=== PATIENT | female | born 1970 ===

== ENCOUNTER → 2019-03-05 21:29 | Outpatient (ROUT) | payer OTHER, SELFPAY ==
[2019-03-05 22:21] LABS: Free T4, Direct Thyroxine 1.33 ng/dL (0.78-2.19)
[2019-03-05 22:35] LABS: Thyroid Stimulating Hormone 0.82 uIU/mL (0.47-4.68)
[2019-03-10 16:23] LABS: Triiodothyronine T3 Total 81 ng/dL (76-181)
== END ==
PROVIDERS: Visit Provider Family Medicine
DX: E03.9 Hypothyroidism, unspecified (principal)
CPT/HCPCS: 36415; 84439; 84443; 84480